=== PATIENT | female | born 1975 | race Caucasian/White ===

== ENCOUNTER → 2020-02-07 | Outpatient (CLI) | payer BC ==
[2005-12-29 07:45] VITALS: TEMP 98.4
[~2020-02-07] MED LIST: PRENATAL1 TA1 PO
== END ==
LOC: COL.LAB 12:37
DX: Z34.90 Encounter for supervision of normal pregnancy, unspecified, unspecified trimester (principal); Z3A.00 Weeks of gestation of pregnancy not specified; Z98.51 Tubal ligation status